=== PATIENT | female | born 1960 | race Two or more races ===

== ENCOUNTER 2021-10-21 21:44 | Inpatient (IN) ==
[2021-10-21 22:33] LABS: BASOPHILS # (AUTO) 0.1 X10^3/uL (0.0-0.1); BASOPHILS % (AUTO) 1.3 % (0.2-1.0); EOSINOPHILS # (AUTO) 0.3 x10^3/uL (0.0-0.2); EOSINOPHILS % (AUTO) 3.4 % (0.9-2.9); HEMOGLOBIN 12.3 g/dL (12.0-16.0); LYMPHOCYTES # (AUTO) 1.4 X10^3/uL (1.3-2.9); LYMPHOCYTES % (AUTO) 18.7 % (21.0-51.0); MEAN CORPUSCULAR HEMOGLOBIN 27.5 pg (27.0-34.0); MEAN CORPUSCULAR HGB CONC 34.2 g/dL (33.0-35.0); MEAN CORPUSCULAR VOLUME 80.4 fL (80.0-100.0); MONOCYTES # (AUTO) 0.7 x10^3/uL (0.3-0.8); MONOCYTES % (AUTO) 8.8 % (0.0-13.0); NEUTROPHILS # (AUTO) 5.2 x10^3/uL (2.2-4.8); NEUTROPHILS % (AUTO) 67.8 % (42.0-75.0); RED BLOOD COUNT 4.47 X10^6/uL (3.5-5.4); RED CELL DISTRIBUTION WIDTH 16.5 % (11.6-16.5); WHITE BLOOD COUNT 7.7 X10^3/uL (3.6-10.0)
[2021-10-21 22:59] LABS: ALANINE AMINOTRANSFERASE 30 Units/L (12-78); ALKALINE PHOSPHATASE 65 Units/L (46-116); ASPARTATE AMINO TRANSFERASE 54 Units/L (15-37); BLOOD UREA NITROGEN 20 mg/dL (7-18); CARBON DIOXIDE 30.5 mmol/L (21-32); CHLORIDE 96 mmol/L (98-107); COR NA(FOR HYPERGLY) 138 mmol/L (136-145); CREATININE 1.32 mg/dL (0.55-1.02); SODIUM 136 mmol/L (136-145); TOTAL PROTEIN 8.6 g/dL (6.4-8.2); eGFR NON BLACK RACES 43 (>60)
[2021-10-21] MEDS ORDERED: DILAUDID INJ IVP ONE (23:03)
[2021-10-21] MEDS ORDERED: MICRO K EXTEN CAP 10 MEQ PO PRN (23:08)
[2021-10-21] MEDS ORDERED: POTASSIUM CHLORIDE LIQ 20 MEQ UDC PO PRN (23:08)
[2021-10-21] MEDS ORDERED: K-DUR TAB 20 MEQ PO PRN (23:08)
[2021-10-21] MEDS ORDERED: POTASSIUM CHL 60 MEQ/NS 0.45% 500 ML IV PRN (23:08)
[2021-10-21] MEDS ORDERED: POTASSIUM CHL 40 MEQ/NS 0.45% 500 ML IV PRN (23:08)
[2021-10-21] MEDS ORDERED: KLOR-CON PO PRN (23:08)
[2021-10-21] MEDS ORDERED: NS 1,000 ML IV 1,000 ML ONE (23:10)
[2021-10-21] MEDS ORDERED: DILAUDID INJ ONE (23:10)
[2021-10-21 23:13] LABS: AMYLASE 39 Units/L (25-115); LIPASE 107 Units/L (73-393)
[2021-10-21] MEDS: NS 1,000 ML IV 1,000 ML IV SCH (23:27)
--- NOTE | 2021-10-22 00:10 | DR.GENAD ---
HPI Time Seen Time Seen by Provider: 10/21/21 22:13 PCP Primary Care Physician: NOT LOCAL HPI Comment HPI Comment: A 61y/o female presenting with c/o abd. pain. Other c/o includes fatigue, anorexia and weight loss. These sympltoms have been noted for a couple of months but have worsened in last few weeks. She has associated light headedness and LOWRY (minimal). SHe has a hx. of Breast Ca nad she is s/p mastectomy. Her last chemo. about 2 weeks. She also has DM with neuropathy. Complaint/Symptoms Chief Complaint:: PT TATES THAT SHE IS HAVING PAIN IN HER ABDOMEN AND HER RIGHT BREAST WELL HER BILATERAL LEGS THAT FEELS LIKE NERVE PAIN. SHE STATES THAT THE PAIN IN HER ABDOMEN IS THE WORST Self Treatment fo Chief Complaint: BLOOD SUGAR IN TRIAGE 176 COVID-19 Coronavirus risk:travel/contact w/high risk person: No Has patient experienced Coronavirus symptoms: No Nurses notes reviewed Nurses Notes Review: Yes Source History Provided: Patient and Family Member Mode of Arrival Mode of Arrival: Ambulatory Timing Onset of Chief Complaint: 10/21/21 Came on: Gradually Duration Duration: Intermittent Duration: Weeks PMH PMH Past Medical History: Yes Past Medical History: Anxiety, Depression, Diabetes and Hypertension Past Medical History Comment: HX OF ADD AND PT HAS RIGHT BREAST CANCER WITH METS TO THE LYMPHNODES - CURRENTLY BEING TREATED WITH CHEMO WITH THE LAST BEING 10/09/2021 Past Surgical History: Yes Surgical History: Cholecystectomy, Tonsillectomy and Other Past Surgical History Comment: CARPAL TUNNEL REPAIR BILATERAL Family History History of Family Medical Conditions: Yes Family Medical History: Diabetes Mellitus, Coronary Artery Disease and Hypertension Social History Does patient currently use any type of tobacco product: No Have you used tobacco products in the last 12 months: No Type of Tobacco Use: None Does any household member use tobacco: No Alcohol Use: None Do you use any recreational Drugs:: No Lives With: Spouse Lives Where: Home Travel Risk Coronavirus risk:travel/contact w/high risk person: No Has patient experienced Coronavirus symptoms: No Infectious screening In the last 2 months have you had wt loss of >10#?: YES Have you had fever, night sweats or hemotysis?: No Have you traveled outside the country in the last 6 months?: No Isolation: Standard ROS Review of Systems Constitutional: No Symptoms Reported Eyes: No Symptoms Reported ENTM: No Symptoms Reported Respiratoy: No Symptoms Reported Cardiovascular: No Symptoms Reported Gastrointestinal/Abdominal: Abdominal Pain Genitourinary: No Symptoms Reported Neurological: No Symptoms Reported Musculoskeletal: No Symptoms Reported Integumentary: No Symptoms Reported Hematologic/Lymphatic: No Symptoms Reported Endocrine: No Symptoms Reported Psychiatric: No Symptoms Reported PE Vital Signs Vitals: Temperature 98.3 F Pulse Rate 81 Respiratory Rate 18 Blood Pressure 78/51 O2 Sat by Pulse Oximetry 99 General Limitations: No Limitations General Appearance: Alert and In No Apparent Distress Head Head Exam: Normal Inspection, Atraumatic and Normocephalic Eyes Eye exam: Normal Appearance and EOMI ENT ENT Exam: Normal Exam, Normal Oropharynx, Normal External Ear Exam and Mucous Membranes Moist Neck Neck Exam: Normal Inspection, Full ROM and Trachea Midline Chest Chest Inspection: Normal Inspection and Symmetric Chest Wall Rise Respiratory Respiratory Exam: Normal Lung Sounds Bilat Cardiovascular Cardiovascular Exam: Regular Rate, Normal Rhythm, Normal Heart Sounds, +S1 and +S2 Abdominal Exam Abdominal Exam: Normal Inspection, Normal Bowel Sounds, Soft and Tenderness Abdominal Tenderness: RUQ Extremities Extremities Exam: Normal Inspection and Full ROM Back Back Exam: Normal Inspection and Full ROM Neurologic Neurological Exam: Alert and Oriented X3 Psychiatric Psychiatric Exam: Normal Affect and Normal Mood Skin Skin Exam: Intact COURSE Treatment Treatment: She became hypotensive with administration of Dilaudid for analgesia. Fluid challenges were administered x 2 L. BP was still hypotensive. SHe was started on Dopamine drip. Dr. Jeffers was updated on the pt's status. Reevaluation 1st: Improved (with admistration of analgesic ) Education/Counseling Education/Counseling: Patient, Family, Education and Counseling Educated On: Treatment, Diagnosis, Prognosis and Needs for Follow Up ROR Labs Reviewed Laboratory Results Reviewed?: Yes Result Diagrams: 10/21/21 22:27 10/21/21 22: Laboratory: WBC 7.7 X10^3/uL (3.6-10.0) 10/21/21 22: RBC 4.47 X10^6/uL (3.5-5.4) 10/21/21 22: Hgb 12.3 g/dL (12.0-16.0) 10/21/21 22: Hct 36.0 % (36.0-47.0) 10/21/21 22: MCV 80.4 fL (80.0-100.0) 10/21/21: MCH 27.5 pg (27.0-34.0) 10/21/21: MCHC 34.2 g/dL (33.0-35.0) 10/21/21 RDW 16.5 % (11.6-16.5) 10/21/21: Plt Count 334 X10^3/uL (150.0-450.0) 10/21/21 MPV 8.0 fL (7.4-11.0) 10/21/21 Neut % (Auto) 67.8 % (42.0-75.0) 10/21/21 Lymph % (Auto) 18.7 % (21.0-51.0) L 10/21/21 Terry % (Auto) 8.8 % (0.0-13.0) 10/21/21 Eos % (Auto) 3.4 % (0.9-2.9) H 10/21/21 Baso % (Auto) 1.3 % (0.2-1.0) H 10/21/21 Neut # (Auto) 5.2 x10^3/uL (2.2-4.8) H 10/21/21 Lymph # (Auto) 1.4 X10^3/uL (1.3-2.9) 10/21/21 Terry # (Auto) 0.7 x10^3/uL (0.3-0.8) 10/21/21 Eos # (Auto) 0.3 x10^3/uL (0.0-0.2) H 10/21/21 Baso # (Auto) 0.1 X10^3/uL (0.0-0.1) 10/21/21 Absolute Nucleated RBC 0.1 /100WBC 10/21/21: Sodium 136 mmol/L (136-145) 10/21/21 Corrected Sodium 138 mmol/L (136-145) 10/21/21 Potassium 2.7 mmol/L (3.5-5.1) L* 10/21/21 Chloride 96 mmol/L (98-107) L 10/21/21 22: Carbon Dioxide 30.5 mmol/L (21-32) 10/21/21 22: BUN 20 mg/dL (7-18) H 10/21/21 22: Creatinine 1.32 mg/dL (0.55-1.02) H 10/21/21 22:27 Est GFR (MDRD) Af Amer 53 (>60) L 10/21/21 22: Est GFR (MDRD) Non-Af 43 (>60) L 10/21/21 22: Glucose 180 mg/dL (65-99) H 10/21/21 22: POC Glucose (mg/dL) 176 mg/dL (65-99) H 10/21/21 22:25 Calcium 10.0 mg/dL (8.5-10.1) 10/21/21 22: Corrected Calcium TNP 10/21/21 22: Magnesium 1.6 mg/dL (1.7-2.9) L 10/21/21 22: Total Bilirubin 0.50 mg/dL (0.2-1.0) 10/21/21 22: AST 54 Units/L (15-37) H 10/21/21 22: ALT 30 Units/L (12-78) 10/21/21 22: Alkaline Phosphatase 65 Units/L (46-116) 10/21/21 22: Total Protein 8.6 g/dL (6.4-8.2) H 10/21/21 22: Albumin 4.0 g/dL (3.4-5.0) 10/21/21 22: Globulin 4.6 g/dL (2.5-4.5) H 10/21/21 22: Albumin/Globulin Ratio 0.9 Ratio (1.1-2.1) L 10/21/21 22: Amylase 39 Units/L (25-115) 10/21/21 22: Lipase 107 Units/L (73-393) 10/21/21 22: SARS-CoV-2 (PCR) Negative (NEGATIVE) 10/22/21 00:10 Opioid Opioid Risk Tool Age (Hemant box if 16-45): No Total: 0 Total Score Risk Category: Low Risk Copyright: Lynn LR predicting aberrant behaviors Diagnosis Discharge Problem: Hypokalemia, Weight loss Abdominal pain Qualifiers: Abdominal location: right upper quadrant Qualified Code(s): R10.11 - Right upper quadrant pain Fatigue Qualifiers: Fatigue type: unspecified Qualified Code(s): R53.83 - Other fatigue Breast cancer metastasized to axillary lymph node Qualifiers: Laterality: right Qualified Code(s): C50.911 - Malignant neoplasm of unspecified site of right female breast HTN (hypertension) Qualifiers: Hypertension type: primary hypertension Qualified Code(s): I10 - Essential (primary) hypertension Type 2 diabetes mellitus Qualifiers: Diabetes mellitus correction insulin use: with correction use Diabetes mellitus complication status: without complication Qualified Code(s): E11.9 - Type 2 diabetes mellitus without complications Hypotension Qualifiers: Hypotension type: hypotension due to drug Qualified Code(s): I95.2 - Hypotension due to drugs ADDITIONAL NOTES Additional Notes Additional Notes: Name: HERMINIO BRANDT AAcct#: [id number]: [id number] : 11/20/2012Sex: FLocation: ER Order Number(s): [id number](s):ABDOMEN/PELVIS WITH CON Ordering Physician: JABARI NEAL Primary Care: RONALDO HARPER Service Date: 10/21/21 Service Time: 2350 PROCEDURE: CT Abdomen and Pelvis with Contrast . HISTORY: Right lower abdomen pain. TECHNIQUE: Axial images were performed through the abdomen and pelvis with the administration of IV contrast with multiplanar reformations . Oral contrast was administered. Dose reduction techniques including Automated Exposure Control (AEC) and adjustment of mA and kV were utilized . COMPARISON: None . TECHNICAL QUALITY: Satisfactory . FINDINGS: Clear lung bases. Liver, spleen, adrenals, pancreas show no abnormality. Kidneys show no masses or obstruction. Normal biliary tract. No ascites or pneumoperitoneum. Normal aorta. Mild mesenteric lymphadenopathy greatest in the right lower quadrant to 12 mm may represent lymph adenitis. No bowel obstruction or inflammation and normal appendix. Pelvis shows no masses or free fluid with unremarkable reproductive organs and urinary bladder. No acute bony abnormality. IMPRESSION: 1. Mild mesenteric lymphadenopathy may represent lymph adenitis. 2. No other abnormality identified. Electronically signed by: Jose Ramirez (October 22, 2021 01:34:01) Report Electronically signed: 10/22/21 0134 CC: Jabari Neal
[2021-10-22] MEDS ORDERED: K-RIDER 10 MEQ/NS 100 ML 10 MEQ/100 ML BAG IV ONE ×4 (00:34→05:09)
[2021-10-22] MEDS ORDERED: MAGNESIUM SULFATE 1 GRAM/100 mL PREMIX 1 G/100 ML BAG IV ONE ×2 (00:36→02:07)
[2021-10-22] MEDS: K-RIDER 10 MEQ/NS 100 ML 10 MEQ/100 ML BAG IV PRN ×6 (00:52→09:41)
[2021-10-22] MEDS: MAGNESIUM SULFATE 1 GRAM/100 mL PREMIX 1 G/100 ML BAG IV PRN ×2 (00:53→02:16)
[2021-10-22] MEDS ORDERED: NS 1,000 ML IV 1,000 ML ONE ×2 (00:57→02:35)
[2021-10-22] MEDS ORDERED: NS 1,000 ML IV 1,000 ML IV ONE (00:58)
--- NOTE | 2021-10-22 02:27 | CT ---
PROCEDURE: CT Abdomen and Pelvis with Contrast .HISTORY: Abdomen pain.TECHNIQUE: Axial images were performed through the abdomen and pelvis with the administration of IV contrast with multiplanar reformations . Oral contrast was administered. Dose reduction techniques including Automated Exposure Control (AEC) and adjustment of mA and kV were utilized .COMPARISON: None .TECHNICAL QUALITY: Satisfactory .FINDINGS:Bronchiectasis and atelectasis right middle lobe.Liver, spleen, adrenals, pancreas show no abnormality.Kidneys show no masses or obstruction.Previous cholecystectomy.No ascites or pneumoperitoneum.Normal aorta.No lymphadenopathy. Scattered small mesenteric nodes.There is fluid in the colon. There is no bowel inflammation or obstruction. Appendix is questionably visualized and appears normal.Pelvis shows no masses or free fluid unremarkable reproductive organs and urinary bladder.Previous right mastectomy.No acute bony abnormality.IMPRESSION:1. There is some fluid throughout the colon without mucosal thickening could be related to colitis that is not visualized on CT.2. No other significant abnormality involving abdomen or pelvis.3. Atelectasis and bronchiectasis right middle lobe.Electronically signed by: Jose Ramirez (October 22, 2021 02:27:00)
[2021-10-22] MEDS ORDERED: DOPAMINE IV PREMIX 400 MG/250 ML 400 MG/250 ML BAG IV PRN (02:46)
[2021-10-22] MEDS ORDERED: D5W 250 ML IV 250 ML IV ONE (02:58)
[2021-10-22] MEDS ORDERED: ZOFRAN INJ 4 MG VIAL IVP PRN (03:04)
[2021-10-22 04:57] LABS: BILIRUBIN,URINE NEGATIVE (NEGATIVE); BLOOD/HEMOGLOBIN,URINE NEGATIVE (NEGATIVE); GLUCOSE, URINE NEGATIVE (NEGATIVE); KETONES,URINE NEGATIVE (NEGATIVE); LEUKOCYTE ESTERASE ,URINE NEGATIVE (NEGATIVE); NITRITES,URINE NEGATIVE (NEGATIVE); PROTEIN,URINE 2+ (NEGATIVE); UROBILINOGEN,URINE NORMAL (NORMAL)
[2021-10-22 04:58] LABS: APPEARANCE,URINE CLEAR (CLEAR); COLOR,URINE YELLOW (YELLOW)
[2021-10-22 05:00] VITALS: BMI 28.1
[2021-10-22 05:08] LABS: BACTERIA,URINE 1+ /HPF (NEGATIVE); HYALINE CASTS, URINE MANY /LPF (NEGATIVE); RBC,URINE NONE SEEN /HPF (0-3); RENAL EPITHELIAL CELLS,URINE FEW /HPF (NEGATIVE); SQUAMOUS EPITHELIAL CELL,UR RARE /HPF (NEGATIVE)
[2021-10-22 05:27] LABS: ALANINE AMINOTRANSFERASE 28 Units/L (12-78); ALKALINE PHOSPHATASE 69 Units/L (46-116); ASPARTATE AMINO TRANSFERASE 60 Units/L (15-37); BLOOD UREA NITROGEN 20 mg/dL (7-18); CALCIUM 9.5 mg/dL (8.5-10.1); CARBON DIOXIDE 23.9 mmol/L (21-32); CHLORIDE 97 mmol/L (98-107); COR NA(FOR HYPERGLY) 136 mmol/L (136-145); CREATININE 1.24 mg/dL (0.55-1.02); SODIUM 133 mmol/L (136-145); TOTAL PROTEIN 8.6 g/dL (6.4-8.2); eGFR NON BLACK RACES 47 (>60)
[2021-10-22 05:28] LABS: BASOPHILS # (AUTO) 0.1 X10^3/uL (0.0-0.1); EOSINOPHILS # (AUTO) 0.4 x10^3/uL (0.0-0.2); EOSINOPHILS % (AUTO) 4.2 % (0.9-2.9); HEMATOCRIT 36.7 % (36.0-47.0); HEMOGLOBIN 12.6 g/dL (12.0-16.0); LYMPHOCYTES # (AUTO) 1.7 X10^3/uL (1.3-2.9); LYMPHOCYTES % (AUTO) 19.9 % (21.0-51.0); MEAN CORPUSCULAR HEMOGLOBIN 27.8 pg (27.0-34.0); MEAN CORPUSCULAR HGB CONC 34.4 g/dL (33.0-35.0); MEAN CORPUSCULAR VOLUME 80.8 fL (80.0-100.0); MEAN PLATELET VOLUME 8.8 fL (7.4-11.0); MONOCYTES # (AUTO) 0.7 x10^3/uL (0.3-0.8); MONOCYTES % (AUTO) 8.1 % (0.0-13.0); NEUTROPHILS # (AUTO) 5.6 x10^3/uL (2.2-4.8); NEUTROPHILS % (AUTO) 66.8 % (42.0-75.0); RED BLOOD COUNT 4.54 X10^6/uL (3.5-5.4); RED CELL DISTRIBUTION WIDTH 16.5 % (11.6-16.5)
[2021-10-22 05:51] LABS: ANISOCYTOSIS SLIGHT; PLATELET MORPHOLOGY COMMENT NORMAL (NORMAL)
[2021-10-22] MEDS: NS 1,000 ML IV 1,000 ML IV SCH ×3 (07:56→16:12)
[2021-10-22] MEDS ORDERED: PROTONIX INJ 40 MG VIAL IVP SCH (09:00)
[2021-10-22] MEDS ORDERED: NS 500 ML IV 500 ML IV ONE (10:37)
[2021-10-22] MEDS ORDERED: XYLOCAINE 2 % (PLAIN) ONE (10:44)
[2021-10-22] MEDS ORDERED: DIPRIVAN VIAL 20 ML ONE (10:44)
[2021-10-22] MEDS ORDERED: PERCOCET TAB 5/325 MG PO PRN (11:42)
--- NOTE | 2021-10-22 11:42 | DR.CONSULT ---
CONSULT Consultation for Day of: Date: 10/22/21 Chief Complaint Chief Complaint: abdominal pain, fatigue, N/V Allergies Allergies Allergy/AdvReac Type Severity Reaction Status Date / Time No Known Drug Allergies Allergy Verified 10/21/21 22:19 History of Present Illness History of Present Illness: Ms Jasso is a 61y/o female with a PMH of HTN, Type 2 DM, anxiety/depression and right breast cancer s/p mastectomy and chemotherapy. Patient is currently getting chemotherapy, infusions every 3 weeks. She has been feeling sick for the past 2 months with abdominal pain, poor oral intake and generalized weakness. She reports fatigue and decreased appetite. She has intermittent vomiting and diarrhea. She also reports worsening generalized pain due to chemo. ER work up included CTAP which showed mucosal thickening and possible colitis. Patient was started on IV protonix, pain control and hydration. She did receive a dose of Dilaudid which did drop her BP into the 50. She was given multiple fluid boluses but BP did not improve much so was started on Dopamine drip. She also had EGD this morning. She states she feels little better right now. Medicine consulted for med management. Labs/imaging reviewed K: 3.6 Mg 2.4 Cr: 1.24 Plan: follow surgery recommendations. Diet as per surgery. Wean dopamine as tolerated to keep MAP > 65. Will start Cipro and Flagyl . Continue hydration with NS. Continue IV protonix BID. Resume home medications. Hold anti- hypertensives and valium for now due to low BP. Continue pain control and insulin. Continue anti-emetics. Replace electrolytes as per protocol. PT/OT as tolerated. Monitor AM labs/imaging. Time spent for clinical assessment, reviewing labs/imaging, physical exam, decision making and documentation greater than 45 mins. Past Medical History Past Medical History: Anxiety, Depression, Diabetes and Hypertension Additional Medical History: Breast cancer Past Surgical History Surgical History: Cholecystectomy and Tonsillectomy Additional Surgical History: mastectomy right Family History Family Medical History: Diabetes Mellitus and Hypertension Social History Does patient currently use any type of tobacco product: No Have you used tobacco products in the last 12 months: No Type of Tobacco Use: None Does any household member use tobacco: No Alcohol Use: None Drug Use: Prescription Drugs Medications Home Medications: No Known Drug Allergies Allergy (Verified 10/21/21 22:19) CONTINUE taking the following medications anastrozole 1 mg PO DAILY 10/21/21 [History] aripiprazole 5 mg PO QHS 10/21/21 [History] dextroamphetamine-amphetamine 30 mg PO BID 10/21/21 [History] diazepam 5 mg PO TID 10/21/21 [History] dicyclomine 20 mg PO Q6H PRN 10/21/21 [History] famotidine 20 mg PO BID 10/21/21 [History] fenofibrate nanocrystallized 145 mg PO QHS 10/21/21 [History] insulin aspart U-100 [Novolog Flexpen U-100 Insulin] See Rx Instructions .ROUTE .COMPLEX PRN MDD 70 10/21/21 [History] insulin glargine U-300 conc [Toujeo Max U-300 SoloStar] 52 unit SUBCUT QHS 10/21/21 [History] lisinopril-hydrochlorothiazide 1 tab PO DAILY 10/21/21 [History] magnesium oxide 400 mg PO DAILY 10/21/21 [History] metformin 1,000 mg PO BID 10/21/21 [History] metoprolol tartrate 50 mg PO BID 10/21/21 [History] ondansetron [Zofran ODT] 8 mg PO DAILY PRN 10/21/21 [History] oxycodone-acetaminophen 1 tab PO Q4HR PRN 10/21/21 [History] pantoprazole 40 mg PO DAILY 10/21/21 [History] pioglitazone 15 mg PO DAILY 10/21/21 [History] sertraline 100 mg PO DAILY 10/21/21 [History] sucralfate 1 g PO QID 10/21/21 [History] Review of Systems Constitutional: Weakness and Malaise Eyes: No Symptoms Reported ENT: No Symptoms Reported Respiratory: No Symptoms Reported Cardiovascular: No Symptoms Reported Gastrointestinal: Nausea, Vomiting, Abdominal Pain and Diarrhea Genitourinary: No Symptoms Reported Musculoskeletal: Shoulder Pain and Back Pain Skin: No Symptoms Reported Neurological: No Symptoms Reported Physical Exam Vital Signs: Temperature 98.3 F Pulse Rate 106 Respiratory Rate 20 Blood Pressure 117/63 O2 Sat by Pulse Oximetry 97 Oriented: Normal Eyes: Normal Ear: Normal Nose: Normal Throat: Normal Respiratory: Clear Throughout Cardiovascular: Normal Auscultation: Bowel Sounds: Normal Tenderness: Epigastric and Mild Skin: Decreased Turgur Musculoskeletal: Normal Psychiatric: Normal Mood Description: Calm Affect: Normal Speech Pattern: Clear and Appropriate Plan (1) Hypotension: Status: Acute Qualifiers: Hypotension type: hypotension due to drug Qualified Code(s): I95.2 - Hypotension due to drugs (2) Gastritis: Status: Acute Qualifiers: Chronicity: unspecified Gastritis bleeding: presence of bleeding unspecified Gastritis type: unspecified gastritis Qualified Code(s): K29.70 - Gastritis, unspecified, without bleeding (3) Hypokalemia: Status: Acute (4) Fatigue: Status: Acute Qualifiers: Fatigue type: unspecified Qualified Code(s): R53.83 - Other fatigue (5) Colitis: Status: Acute (6) Hypomagnesemia: Status: Acute (7) PRABHA (acute kidney injury): Status: Acute (8) Dehydration: Status: Acute (9) Weight loss: Status: Acute (10) Generalized weakness: Status: Acute (11) Breast cancer metastasized to axillary lymph node: Status: Acute Qualifiers: Laterality: right Qualified Code(s): C50.911 - Malignant neoplasm of unspecified site of right female breast; C77.3 - Secondary and unspecified malignant neoplasm of axilla and upper limb lymph nodes (12) Type 2 diabetes mellitus: Status: Acute Qualifiers: Diabetes mellitus complication status: without complication 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
[2021-10-22] MEDS ORDERED: ZOLOFT ONE (12:08)
[2021-10-22] MEDS: CIPRO IV 400 MG PREMIX* 400 MG/200 ML IV.SOLN. IV SCH ×2 (12:10→20:12)
[2021-10-22] MEDS: ARIMIDEX PO SCH (12:10)
[2021-10-22] MEDS: ZOLOFT PO SCH ×2 (12:10→12:11)
[2021-10-22] MEDS: NovoLIN R (or HumuLIN R) SUBCUT PRN (12:25)
[2021-10-22] MEDS: FLAGYL IV PREMIX 500 MG BAG 500 MG/100 ML BAG IV SCH ×2 (14:00→22:05)
[2021-10-22] MEDS ORDERED: VALIUM PO SCH (14:00)
[2021-10-22] MEDS ORDERED: GLUCOPHAGE ONE (17:10)
[2021-10-22] MEDS: GLUCOPHAGE PO SCH (17:10)
[2021-10-22] MEDS: PERCOCET TAB 5/325 MG PO PRN (18:30)
[2021-10-22] MEDS ORDERED: DILAUDID INJ IVP PRN (18:46)
[2021-10-22] MEDS ORDERED: TORADOL TAB PO PRN (18:47)
[2021-10-22] MEDS ORDERED: VALIUM PO PRN (18:48)
[2021-10-22] MEDS: TRICOR TAB 145 MG PO SCH (20:10)
[2021-10-22] MEDS: LOPRESSOR TAB 50 MG PO SCH (20:11)
[2021-10-22] MEDS: ABILIFY PO SCH (20:11)
[2021-10-22] MEDS: PROTONIX INJ 40 MG VIAL IVP SCH (20:12)
[2021-10-22] MEDS: BENTYL CAP 10 MG PO PRN (20:13)
[2021-10-23] MEDS: NS 1,000 ML IV 1,000 ML IV SCH (00:19)
[2021-10-23] MEDS ORDERED: GLUCOPHAGE ONE ×2 (04:40→17:29)
[2021-10-23] MEDS: BENTYL CAP 10 MG PO PRN (05:19)
[2021-10-23] MEDS: PERCOCET TAB 5/325 MG PO PRN ×2 (05:19→21:25)
[2021-10-23] MEDS: FLAGYL IV PREMIX 500 MG BAG 500 MG/100 ML BAG IV SCH ×3 (05:19→21:25)
[2021-10-23 05:21] LABS: BASOPHILS % (AUTO) 0.5 % (0.2-1.0); EOSINOPHILS # (AUTO) 0.2 x10^3/uL (0.0-0.2); EOSINOPHILS % (AUTO) 3.5 % (0.9-2.9); LYMPHOCYTES % (AUTO) 15.1 % (21.0-51.0); MEAN CORPUSCULAR HEMOGLOBIN 28.5 pg (27.0-34.0); MEAN CORPUSCULAR HGB CONC 34.9 g/dL (33.0-35.0); MEAN CORPUSCULAR VOLUME 81.5 fL (80.0-100.0); MONOCYTES # (AUTO) 0.6 x10^3/uL (0.3-0.8); MONOCYTES % (AUTO) 8.8 % (0.0-13.0); NEUTROPHILS # (AUTO) 4.7 x10^3/uL (2.2-4.8); NEUTROPHILS % (AUTO) 72.1 % (42.0-75.0); RED BLOOD COUNT 3.68 X10^6/uL (3.5-5.4); RED CELL DISTRIBUTION WIDTH 16.4 % (11.6-16.5); WHITE BLOOD COUNT 6.5 X10^3/uL (3.6-10.0)
[2021-10-23 05:22] LABS: HEMOGLOBIN 10.5 g/dL (12.0-16.0)
[2021-10-23 05:26] LABS: ALANINE AMINOTRANSFERASE 19 Units/L (12-78); ALKALINE PHOSPHATASE 57 Units/L (46-116); ASPARTATE AMINO TRANSFERASE 34 Units/L (15-37); BLOOD UREA NITROGEN 10 mg/dL (7-18); CALCIUM 8.8 mg/dL (8.5-10.1); CARBON DIOXIDE 25.1 mmol/L (21-32); CHLORIDE 103 mmol/L (98-107); COR CA(FOR HYPOALB) 9.6 mg/dL (8.5-10.1); COR NA(FOR HYPERGLY) 140 mmol/L (136-145); CREATININE 1.05 mg/dL (0.55-1.02); MAGNESIUM 1.3 mg/dL (1.7-2.9); SODIUM 139 mmol/L (136-145); TOTAL PROTEIN 6.9 g/dL (6.4-8.2); eGFR NON BLACK RACES 57 (>60)
[2021-10-23] MEDS: GLUCOPHAGE PO SCH ×2 (05:59→17:36)
[2021-10-23] MEDS ORDERED: NS 500 ML IV 500 ML IV PRN (06:11)
[2021-10-23] MEDS ORDERED: NS 500 ML IV 500 ML IV ONE (06:14)
[2021-10-23] MEDS: MAGNESIUM SULFATE 1 GRAM/100 mL PREMIX 1 G/100 ML BAG IV PRN ×6 (06:20→22:27)
[2021-10-23] MEDS: K-RIDER 10 MEQ/NS 100 ML 10 MEQ/100 ML BAG IV PRN ×6 (06:30→15:30)
[2021-10-23] MEDS ORDERED: ZOLOFT ONE (08:19)
[2021-10-23] MEDS: NS + KCL 20 MEQ/L 1,000 ML IV SCH ×2 (08:26→21:25)
[2021-10-23] MEDS: LOPRESSOR TAB 50 MG PO SCH ×2 (08:26→20:06)
[2021-10-23] MEDS: ARIMIDEX PO SCH (08:26)
[2021-10-23] MEDS: ZOLOFT PO SCH (08:27)
[2021-10-23] MEDS: CIPRO IV 400 MG PREMIX* 400 MG/200 ML IV.SOLN. IV SCH ×2 (09:39→20:06)
[2021-10-23] MEDS: PROTONIX INJ 40 MG VIAL IVP SCH ×2 (09:40→20:06)
[2021-10-23] MEDS: NovoLIN R (or HumuLIN R) SUBCUT PRN (12:02)
--- NOTE | 2021-10-23 12:27 | DR.PROGNOT ---
Hospital Progress Notes - Progress Note for Day of: Progress Note Date: 10/23/21 - Chief Complaint Chief Complaint: was very weak and tired last night .. very poor appetite .. still having epigastric and RUQ pain with nausea .. no vomiting . K 2.9 ..BS 159.. BUN/Creat 10/1.5. C Diff negative .. abdominal CT showed fluid in the colon .( needs future colonoscopy ) - Past Medical Family Social History Past Med/Fam/Surg Hx: No changes since H&P Allergies: Allergies No Known Drug Allergies Allergy (Verified 10/21/21 22:19) - Review Of Systems ROS: No change since H&P - Vital Signs Vital Signs: Temperature 98.1 F Pulse Rate 93 Respiratory Rate 23 Blood Pressure 157/74 O2 Sat by Pulse Oximetry 94 - Physical Exam Oriented: Normal Eyes: Normal Ear: Normal Nose: Normal Throat: Normal Cardiovascular: Normal, Tachycardia GI:Auscultation: Normal, Increased GI: Tenderness: Diffuse (soft abdomen with moderate localized tenderness to RUQ and epigastrium .. BS hypoactive .), Epigastric, Mild Skin: Decreased Turgur Musculoskeletal: Normal Psychiatric: Normal Mood Description: Calm Affect: Normal Speech Pattern: Clear - Laboratory and Diagnostics Result Diagrams: 10/23/21 04:45 10/23/21 04:45 Labs: Laboratory WBC 6.5 X10^3/uL (3.6-10.0) 10/23/21 04:45 RBC 3.68 X10^6/uL (3.5-5.4) 10/23/21 04:45 Hgb 10.5 g/dL (12.0-16.0) L D 10/23/21 04:45 Hct 30.0 % (36.0-47.0) L 10/23/21 04:45 MCV 81.5 fL (80.0-100.0) 10/23/21 04:45 MCH 28.5 pg (27.0-34.0) 10/23/21 04:45 MCHC 34.9 g/dL (33.0-35.0) 10/23/21 04:45 RDW 16.4 % (11.6-16.5) 10/23/21 04:45 Plt Count 262 X10^3/uL (150.0-450.0) 10/23/21 04:45 Plt Count Comment Adequate (ADEQUATE) 10/22/21 05:00 MPV 8.0 fL (7.4-11.0) 10/23/21 04:45 Neut % (Auto) 72.1 % (42.0-75.0) 10/23/21 04:45 Lymph % (Auto) 15.1 % (21.0-51.0) L 10/23/21 04:45 [place] % (Auto) 8.8 % (0.0-13.0) 10/23/21 04:45 Eos % (Auto) 3.5 % (0.9-2.9) H 10/23/21 04:45 Baso % (Auto) 0.5 % (0.2-1.0) 10/23/21 04:45 Neut # (Auto) 4.7 x10^3/uL (2.2-4.8) 10/23/21 04:45 Lymph # (Auto) 1.0 X10^3/uL (1.3-2.9) L 10/23/21 04:45 [place] # (Auto) 0.6 x10^3/uL (0.3-0.8) 10/23/21 04:45 Eos # (Auto) 0.2 x10^3/uL (0.0-0.2) 10/23/21 04:45 Baso # (Auto) 0.0 X10^3/uL (0.0-0.1) 10/23/21 04:45 Absolute Nucleated RBC 0.0 /100WBC 10/23/21 04:45 Plt Morphology Comment Normal (NORMAL) 10/22/21 05:00 RBC Morphology Abnormal (NORMAL) A 10/22/21 05:00 Anisocytosis Slight A 10/22/21 05:00 Sodium 139 mmol/L (136-145) 10/23/21 04:45 Corrected Sodium 140 mmol/L (136-145) 10/23/21 04:45 Potassium 2.9 mmol/L (3.5-5.1) L* 10/23/21 04:45 Chloride 103 mmol/L (98-107) 10/23/21 04:45 Carbon Dioxide 25.1 mmol/L (21-32) 10/23/21 04:45 BUN 10 mg/dL (7-18) 10/23/21 04:45 Creatinine 1.05 mg/dL (0.55-1.02) H 10/23/21 04:45 Est GFR (MDRD) Af Amer > 60 (>60) 10/23/21 04:45 Est GFR (MDRD) Non-Af 57 (>60) L 10/23/21 04:45 Glucose 123 mg/dL (65-99) H 10/23/21 04:45 POC Glucose (mg/dL) 159 mg/dL (65-99) H 10/23/21 11:59 Calcium 8.8 mg/dL (8.5-10.1) 10/23/21 04:45 Corrected Calcium 9.6 mg/dL (8.5-10.1) 10/23/21 04:45 Magnesium 1.3 mg/dL (1.7-2.9) L 10/23/21 04:45 Total Bilirubin 0.30 mg/dL (0.2-1.0) 10/23/21 04:45 AST 34 Units/L (15-37) 10/23/21 04:45 ALT 19 Units/L (12-78) 10/23/21 04:45 Alkaline Phosphatase 57 Units/L (46-116) 10/23/21 04:45 Total Protein 6.9 g/dL (6.4-8.2) 10/23/21 04:45 Albumin 3.0 g/dL (3.4-5.0) L 10/23/21 04:45 Globulin 3.9 g/dL (2.5-4.5) 10/23/21 04:45 Albumin/Globulin Ratio 0.8 Ratio (1.1-2.1) L 10/23/21 04:45 Amylase 39 Units/L (25-115) 10/21/21 22:27 Lipase 107 Units/L (73-393) 10/21/21 22:27 Specimen Type Catherized urine 10/22/21 04:15 Urine Color Yellow (YELLOW) 10/22/21 04:15 Urine Appearance Clear (CLEAR) 10/22/21 04:15 Urine pH 5.0 (5.0 - 8.0) 10/22/21 04:15 Ur Specific [place] 1.010 (1.000-1.030) 10/22/21 04:15 Urine Protein 2+ (NEGATIVE) 10/22/21 04:15 Urine Glucose (UA) Negative (NEGATIVE) 10/22/21 04:15 Urine Ketones Negative (NEGATIVE) 10/22/21 04:15 Urine Blood Negative (NEGATIVE) 10/22/21 04:15 Urine Nitrite Negative (NEGATIVE) 10/22/21 04:15 Urine Bilirubin Negative (NEGATIVE) 10/22/21 04:15 Urine Urobilinogen Normal (NORMAL) 10/22/21 04:15 Ur Leukocyte Esterase Negative (NEGATIVE) 10/22/21 04:15 Urine RBC None seen /HPF (0-3) 10/22/21 04:15 Urine WBC 0-2 /HPF (0-5) 10/22/21 04:15 Ur Squamous Epith Cells Rare /HPF (NEGATIVE) 10/22/21 04:15 Ur Renal Epithelial Cell Few /HPF (NEGATIVE) 10/22/21 04:15 Urine Bacteria 1+ /HPF (NEGATIVE) 10/22/21 04:15 Hyaline Casts Many /LPF (NEGATIVE) 10/22/21 04:15 Urine Mucus Moderate /HPF (NEGATIVE) 10/22/21 04:15 Ur Culture Indicated? No/not indicated 10/22/21 04:15 Stl C. diff Tox B Gene Negative (NEGATIVE) 10/22/21 14:20 Stl C. diff [id number] Negative (NEGATIVE) 10/22/21 14:20 SARS-CoV-2 (PCR) Negative (NEGATIVE) 10/22/21 00:10 Tissue Pathology To follow 10/22/21 10:50 - Assessment and Plan 1: abdominal pain . hypokalemia ,. DM,HTN. dehydration ( corrected ). Rt breast ca on chemo Tx. same medical care for now .. future colonoscopy . pain control with Duragesic and MS contin .. - Problem Patient Problems: Patient Problems Abdominal pain (Acute) R10.9 Hypokalemia (Acute) E87.6 Fatigue (Acute) R53.83 Weight loss (Acute) R63.4 Breast cancer metastasized to axillary lymph node (Acute) C50.919, C77.3 HTN (hypertension) (Acute) I10 Type 2 diabetes mellitus (Acute) E11.9 Hypotension (Acute) I95.9
--- NOTE | 2021-10-23 13:06 | PCM.PROG ---
Progress Note Progress Note for Day of Date of Exam: 10/23/21 Subjective Subjective: Patient seen at bedside, no events overnight. She feels slightly better today. She states her abdominal pain has improved. Denies N/V. She did have some diarrhea overnight and this morning. She is able to eat a little bit. She still has fatigue and generalized weakness. Patient's BP has improved, has been off dopamine drip since yesterday afternoon. Labs reviewed: low K and Mag Plan: will change IVF to NS with KCl, replace electrolytes as per protocol. Encouraged PO intake. PT/OT as tolerated. Continue home medications. Continue pain control. Continue IV antibiotics. Continue protonix. Advance diet as per surgery. Monitor AM labs/imaging. Past Medical Family Social History Past Med/Fam/Surg Hx: No changes since H&P Allergies: Allergies No Known Drug Allergies Allergy (Verified 10/21/21 22:19) Review of Systems ROS: No change since H&P Vital Signs and I&O's Vital Signs: Temperature 98.1 F Pulse Rate 93 Respiratory Rate 23 Blood Pressure 157/74 O2 Sat by Pulse Oximetry 94 Intake and Output: Intake & Output 10/20/21 10/21/21 10/22/21 10/23/21 23:59 23:59 23:59 23:59 Intake Total 4879 / 4879 660 / 660 Output Total 1900 / 1900 Balance 2979 / 2979 660 / 660 Physical Exam Oriented: Normal Eyes: Normal Ear: Normal Nose: Normal Throat: Normal Respiratory: Normal Cardiovascular: Tachycardia Auscultation: Bowel Sounds: Normal Tenderness: Epigastric and Mild Skin: Decreased Turgur Musculoskeletal: Normal Psychiatric: Normal Mood Description: Calm Affect: Normal Speech Pattern: Clear Laboratory and Diagnostics Result Diagrams: 10/23/21 04:45 10/23/21 04:45 Labs: Laboratory WBC 6.5 X10^3/uL (3.6-10.0) 10/23/21 04:45 RBC 3.68 X10^6/uL (3.5-5.4) 10/23/21 04:45 Hgb 10.5 g/dL (12.0-16.0) L D 10/23/21 04:45 Hct 30.0 % (36.0-47.0) L 10/23/21 04:45 MCV 81.5 fL (80.0-100.0) 10/23/21 04:45 MCH 28.5 pg (27.0-34.0) 10/23/21 04:45 MCHC 34.9 g/dL (33.0-35.0) 10/23/21 04:45 RDW 16.4 % (11.6-16.5) 10/23/21 04:45 Plt Count 262 X10^3/uL (150.0-450.0) 10/23/21 04:45 Plt Count Comment Adequate (ADEQUATE) 10/22/21 05:00 MPV 8.0 fL (7.4-11.0) 10/23/21 04:45 Neut % (Auto) 72.1 % (42.0-75.0) 10/23/21 04:45 Lymph % (Auto) 15.1 % (21.0-51.0) L 10/23/21 04:45 [place] % (Auto) 8.8 % (0.0-13.0) 10/23/21 04:45 Eos % (Auto) 3.5 % (0.9-2.9) H 10/23/21 04:45 Baso % (Auto) 0.5 % (0.2-1.0) 10/23/21 04:45 Neut # (Auto) 4.7 x10^3/uL (2.2-4.8) 10/23/21 04:45 Lymph # (Auto) 1.0 X10^3/uL (1.3-2.9) L 10/23/21 04:45 [place] # (Auto) 0.6 x10^3/uL (0.3-0.8) 10/23/21 04:45 Eos # (Auto) 0.2 x10^3/uL (0.0-0.2) 10/23/21 04:45 Baso # (Auto) 0.0 X10^3/uL (0.0-0.1) 10/23/21 04:45 Absolute Nucleated RBC 0.0 /100WBC 10/23/21 04:45 Plt Morphology Comment Normal (NORMAL) 10/22/21 05:00 RBC Morphology Abnormal (NORMAL) A 10/22/21 05:00 Anisocytosis Slight A 10/22/21 05:00 Sodium 139 mmol/L (136-145) 10/23/21 04:45 Corrected Sodium 140 mmol/L (136-145) 10/23/21 04:45 Potassium 2.9 mmol/L (3.5-5.1) L* 10/23/21 04:45 Chloride 103 mmol/L (98-107) 10/23/21 04:45 Carbon Dioxide 25.1 mmol/L (21-32) 10/23/21 04:45 BUN 10 mg/dL (7-18) 10/23/21 04:45 Creatinine 1.05 mg/dL (0.55-1.02) H 10/23/21 04:45 Est GFR (MDRD) Af Amer > 60 (>60) 10/23/21 04:45 Est GFR (MDRD) Non-Af 57 (>60) L 10/23/21 04:45 Glucose 123 mg/dL (65-99) H 10/23/21 04:45 POC Glucose (mg/dL) 159 mg/dL (65-99) H 10/23/21 11:59 Calcium 8.8 mg/dL (8.5-10.1) 10/23/21 04:45 Corrected Calcium 9.6 mg/dL (8.5-10.1) 10/23/21 04:45 Magnesium 1.3 mg/dL (1.7-2.9) L 10/23/21 04:45 Total Bilirubin 0.30 mg/dL (0.2-1.0) 10/23/21 04:45 AST 34 Units/L (15-37) 10/23/21 04:45 ALT 19 Units/L (12-78) 10/23/21 04:45 Alkaline Phosphatase 57 Units/L (46-116) 10/23/21 04:45 Total Protein 6.9 g/dL (6.4-8.2) 10/23/21 04:45 Albumin 3.0 g/dL (3.4-5.0) L 10/23/21 04:45 Globulin 3.9 g/dL (2.5-4.5) 10/23/21 04:45 Albumin/Globulin Ratio 0.8 Ratio (1.1-2.1) L 10/23/21 04:45 Amylase 39 Units/L (25-115) 10/21/21 22:27 Lipase 107 Units/L (73-393) 10/21/21 22:27 Specimen Type Catherized urine 10/22/21 04:15 Urine Color Yellow (YELLOW) 10/22/21 04:15 Urine Appearance Clear (CLEAR) 10/22/21 04:15 Urine pH 5.0 (5.0 - 8.0) 10/22/21 04:15 Ur Specific [place] 1.010 (1.000-1.030) 10/22/21 04:15 Urine Protein 2+ (NEGATIVE) 10/22/21 04:15 Urine Glucose (UA) Negative (NEGATIVE) 10/22/21 04:15 Urine Ketones Negative (NEGATIVE) 10/22/21 04:15 Urine Blood Negative (NEGATIVE) 10/22/21 04:15 Urine Nitrite Negative (NEGATIVE) 10/22/21 04:15 Urine Bilirubin Negative (NEGATIVE) 10/22/21 04:15 Urine Urobilinogen Normal (NORMAL) 10/22/21 04:15 Ur Leukocyte Esterase Negative (NEGATIVE) 10/22/21 04:15 Urine RBC None seen /HPF (0-3) 10/22/21 04:15 Urine WBC 0-2 /HPF (0-5) 10/22/21 04:15 Ur Squamous Epith Cells Rare /HPF (NEGATIVE) 10/22/21 04:15 Ur Renal Epithelial Cell Few /HPF (NEGATIVE) 10/22/21 04:15 Urine Bacteria 1+ /HPF (NEGATIVE) 10/22/21 04:15 Hyaline Casts Many /LPF (NEGATIVE) 10/22/21 04:15 Urine Mucus Moderate /HPF (NEGATIVE) 10/22/21 04:15 Ur Culture Indicated? No/not indicated 10/22/21 04:15 Stl C. diff Tox B Gene Negative (NEGATIVE) 10/22/21 14:20 Stl C. diff [id number] Negative (NEGATIVE) 10/22/21 14:20 SARS-CoV-2 (PCR) Negative (NEGATIVE) 10/22/21 00:10 Tissue Pathology To follow 10/22/21 10:50 Plan (1) Hypotension: Status: Acute Qualifiers: Hypotension type: hypotension due to drug Qualified Code(s): I95.2 - Hypotension due to drugs (2) Gastritis: Status: Acute Qualifiers: Chronicity: unspecified Gastritis bleeding: presence of bleeding unspecified Gastritis type: unspecified gastritis Qualified Code(s): K29.70 - Gastritis, unspecified, without bleeding (3) Hypokalemia: Status: Acute (4) Fatigue: Status: Acute Qualifiers: Fatigue type: unspecified Qualified Code(s): R53.83 - Other fatigue (5) Colitis: Status: Acute (6) Hypomagnesemia: Status: Acute (7) PRABHA (acute kidney injury): Status: Acute (8) Dehydration: Status: Acute (9) Weight loss: Status: Acute (10) Generalized weakness: Status: Acute (11) Breast cancer metastasized to axillary lymph node: Status: Acute Qualifiers: Laterality: right Qualified Code(s): C50.911 - Malignant neoplasm of unspecified site of right female breast; C77.3 - Secondary and unspecified malignant neoplasm of axilla and upper limb lymph nodes (12) Type 2 diabetes mellitus: Status: Acute Qualifiers: Diabetes mellitus complication status: without complication 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
[2021-10-23] MEDS: ZESTORETIC 20/25 MG PO SCH (13:58)
[2021-10-23 18:59] LABS: MAGNESIUM 1.5 mg/dL (1.7-2.9)
[2021-10-23] MEDS: TRICOR TAB 145 MG PO SCH (20:05)
[2021-10-23] MEDS: ABILIFY PO SCH (20:05)
[2021-10-24] MEDS ORDERED: GLUCOPHAGE ONE (03:44)
[2021-10-24 05:05] LABS: BASOPHILS % (AUTO) 0.7 % (0.2-1.0); EOSINOPHILS # (AUTO) 0.2 x10^3/uL (0.0-0.2); EOSINOPHILS % (AUTO) 3.6 % (0.9-2.9); HEMATOCRIT 30.1 % (36.0-47.0); HEMOGLOBIN 10.5 g/dL (12.0-16.0); LYMPHOCYTES # (AUTO) 1.2 X10^3/uL (1.3-2.9); LYMPHOCYTES % (AUTO) 23.3 % (21.0-51.0); MEAN CORPUSCULAR HGB CONC 34.7 g/dL (33.0-35.0); MEAN CORPUSCULAR VOLUME 80.8 fL (80.0-100.0); MONOCYTES # (AUTO) 0.4 x10^3/uL (0.3-0.8); NEUTROPHILS # (AUTO) 3.4 x10^3/uL (2.2-4.8); NEUTROPHILS % (AUTO) 65.4 % (42.0-75.0); RED BLOOD COUNT 3.73 X10^6/uL (3.5-5.4); RED CELL DISTRIBUTION WIDTH 16.5 % (11.6-16.5); WHITE BLOOD COUNT 5.3 X10^3/uL (3.6-10.0)
[2021-10-24 05:21] LABS: ALANINE AMINOTRANSFERASE 19 Units/L (12-78); ALBUMIN 3.1 g/dL (3.4-5.0); ALKALINE PHOSPHATASE 62 Units/L (46-116); ASPARTATE AMINO TRANSFERASE 32 Units/L (15-37); BLOOD UREA NITROGEN 7 mg/dL (7-18); CALCIUM 9.1 mg/dL (8.5-10.1); CARBON DIOXIDE 26.2 mmol/L (21-32); CHLORIDE 104 mmol/L (98-107); COR CA(FOR HYPOALB) 9.8 mg/dL (8.5-10.1); COR NA(FOR HYPERGLY) 140 mmol/L (136-145); MAGNESIUM 1.8 mg/dL (1.7-2.9); SODIUM 138 mmol/L (136-145); TOTAL PROTEIN 7.3 g/dL (6.4-8.2); eGFR NON BLACK RACES 60 (>60)
[2021-10-24] MEDS: FLAGYL IV PREMIX 500 MG BAG 500 MG/100 ML BAG IV SCH (05:54)
[2021-10-24] MEDS: GLUCOPHAGE PO SCH (06:05)
[2021-10-24] MEDS ORDERED: ZOLOFT ONE (07:49)
[2021-10-24] MEDS: ZOLOFT PO SCH (08:03)
[2021-10-24] MEDS: ARIMIDEX PO SCH (08:03)
[2021-10-24] MEDS: CIPRO IV 400 MG PREMIX* 400 MG/200 ML IV.SOLN. IV SCH (08:27)
[2021-10-24] MEDS: ZESTORETIC 20/25 MG PO SCH (08:27)
[2021-10-24] MEDS: LOPRESSOR TAB 50 MG PO SCH (08:27)
[2021-10-24] MEDS: PROTONIX INJ 40 MG VIAL IVP SCH (08:27)
[2021-10-24 08:51] VITALS: BP 101/58
== END 2021-10-24 09:15 | disposition home or self-care (01) | DRG 392 ==
LOC: MED/SURG 21:56 → ER 21:56 → OBSVTOIN 10-22 03:01 → ICU 10-22 03:22
PROVIDERS: ADMIT Surgery; ATTEND Surgery
DX: I10 Essential (primary) hypertension; N17.8 Other acute kidney failure; R10.84 Generalized abdominal pain; Z79.4 Long term (current) use of insulin; E83.42 Hypomagnesemia; I95.2 Hypotension due to drugs; E87.6 Hypokalemia; E86.0 Dehydration; R10.13 Epigastric pain; K21.9 Gastro-esophageal reflux disease without esophagitis; E11.65 Type 2 diabetes mellitus with hyperglycemia; C50.911 Malignant neoplasm of unspecified site of right female breast; F41.8 Other specified anxiety disorders; Z90.11 Acquired absence of right breast and nipple; R63.4 Abnormal weight loss; Z92.21 Personal history of antineoplastic chemotherapy; Z20.822 Contact with and (suspected) exposure to COVID-19; K29.00 Acute gastritis without bleeding